=== PATIENT | female | born 1995 | race Caucasian/White ===

== ENCOUNTER 2018-02-03 16:41 | Emergency (ER) | payer OTHER ==
--- NOTE | 2018-02-03 17:52 | EDPHY ---
H & P Stated Complaint: ANXIETY INDUCED EPILEPSY/HYPERVENTILATING FEELS SOB Time Seen by Provider: 02/03/18 17:05 HPI/ROS: CHIEF COMPLAINT: Hyperventilating HISTORY OF PRESENT ILLNESS: This is a 23-year-old female with a seizure disorder comes in after experiencing an episode during which she felt anxious, began to breathe rapidly, developed numbness and tingling, and had chest pain. She has never had a similar episode before. This is nothing like her seizures, which she describes as ground mal, preceded by an aura and followed by a postictal state. She takes Keppra and lamotrigine for her seizures. She is compliant with her medications. Her last seizure was in August of 2016. She has not been ill recently. She does not use alcohol. REVIEW OF SYSTEMS: A ten system review of systems was performed and is negative with the exception of the items mentioned in the HPI. Past medical history: Seizure disorder Social history: She is a student at the [employer]. She does not use alcohol or tobacco products. Her neurologist is in [place], [place]. General Appearance: Alert. Vital signs reviewed. Eyes: Pupils equal and round, no conjunctival injection, no discharge. Anicteric. ENT, Mouth: Mucous membranes are moist, no oropharyngeal erythema or edema. No tongue injury. Neck: No lymphadenopathy, supple. Respiratory: Lungs are clear to auscultation; no wheezes, rales, or rhonchi. Cardiovascular: Regular rate and rhythm; no murmur, rub, or gallop. Gastrointestinal: Abdomen is soft and nontender, no masses or organomegaly, bowel sounds normal. Skin: Warm and dry, no rashes on exposed skin, normal color. Back: Nontender to palpation over the thoracolumbar spine. No CVAT. Extremities: No lower extremity edema, no calf tenderness or swelling. Neurological: Alert and oriented. Moving all four extremities easily and equally. Cranial nerves II through XII are examined and are intact (visual acuity not tested). Strength is 5 over 5 bilaterally with testing of all major motor groups. Sensation is intact to light touch over all 4 extremities. Deep tendon reflexes are 2+ in the biceps and knees bilaterally. Gait is normal. Psychiatric: Normal affect. - Personal History LMP (Females 10-55): IUD In Place Current Tetanus Diphtheria and Acellular Pertussis (TDAP): Yes - Medical/Surgical History Hx Asthma: No Hx Chronic Respiratory Disease: No Hx Diabetes: No Hx Cardiac Disease: No Hx Renal Disease: No Hx Cirrhosis: No Hx Alcoholism: No Hx HIV/AIDS: No Hx Splenectomy or Spleen Trauma: No Other PMH: seizures - Social History Smoking Status: Never smoked Constitutional: Initial Vital Signs Temperature (C) 36.5 C 02/03/18 16:42 Heart Rate 69 02/03/18 16:42 Respiratory Rate 24 H 02/03/18 16:42 Blood Pressure 118/82 H 02/03/18 16:42 O2 Sat (%) 100 02/03/18 16:42 O2 Delivery Mode Room Air Allergies/Adverse Reactions: No Known Allergies Allergy (Verified 02/03/18 16:41) Home Medications: Medication Instructions Recorded Keppra 01/10/16 Lamotrigine 02/03/18 Medical Decision Making ED Course/Re-evaluation: History and physical are consistent with an anxiety attack. I do not think that she had a seizure. I do not recommend any further evaluation in the emergency department. At the time of my evaluation she is resting comfortably with a normal respiratory rate and is completely asymptomatic. She will follow up with her neurologist, although neither she nor I think that she had a seizure today. However, her mother would like her to see her neurologist and I think that this is reasonable. I do not suspect cardiac or pulmonary problem. Differential Diagnosis: I considered a differential diagnosis that includes but is not limited to seizure, anxiety attack, hyperventilation, PE. Departure - Departure Disposition: Home, Routine, Self-Care Clinical Impression: Panic attack Condition: Good Instructions: Panic Attack (ED) Additional Instructions: As we discussed, I think that you had a panic attack. This is not dangerous, just frightening. I think it is reasonable to follow up with your neurologist. Continue your prescription medications. Referrals: ROBERTA Abreu,. [Clinic] - As per Instructions
[2018-02-03 18:02] VITALS: BP 105/68
== END 2018-02-03 18:01 | disposition home or self-care (01) ==
DX: F41.0 Panic disorder [episodic paroxysmal anxiety] (principal)